=== PATIENT | male | born 1950 | race African-American/Black ===

== ENCOUNTER 2017-04-14 11:51 | Inpatient (IN) | payer OTHER ==
[~2017-04-14] VITALS: Ht 145 cm; Wt 68.5 kg
--- NOTE | ~2017-04-14 | HC ---
[facility] [address] [place] [address] CONSULTATION Name: KISHORE GUTIERREZ Room #: 442-P [facility] IN M.R.#: [id number] Admission: 04/14/17 Attend Phys: Michael Logan Discharge: 04/16/17 Date of : 52 Report #: [id number] THIS REPORT FOR: //name// CC: Michael Jennings DATE OF SERVICE: 04/14/2017 CHIEF COMPLAINT: Right flank pain. CONSULTING PHYSICIAN: Dr. Logan. HISTORY OF PRESENT ILLNESS: The patient is a very pleasant 66-year-old male patient who presented to the Emergency Department on 04/14/2017 complaining of right flank pain that had begun earlier that morning. He also associated nausea with this symptom. He also reported multiple episodes of diarrhea approximately four times during the day associated with crampy abdominal pain in the right flank. He also had some pain in the left flank. No gavin fevers or chills were reported. Prior abdominal operations include open appendectomy in the distant past. PAST MEDICAL HISTORY: Positive for hypertension, spinal stenosis, rheumatoid arthritis, previous gastritis, gastroesophageal reflux disease, previous cellulitis, gout, cataracts, arthritis, status post multiple orthopedic operations and chronic low back pain. ALLERGIES: Include PLAVIX and MORPHINE, which give hives and rash. MEDICATIONS: Include Naprosyn, Norflex, Ultram, Nexium, Indocin and prednisone. Previous medications included metoprolol, simvastatin and tamsulosin. PAST SURGICAL HISTORY: Positive for bilateral knee replacement, bilateral hip replacement, open appendectomy, cataract surgery; previous retinal ophthalmologic surgery, bilateral. SOCIAL HISTORY: Negative for illicit drug use, social ETOH, 2-3 drinks per day. Previous smoker many years ago. REVIEW OF SYSTEMS: CONSTITUTIONAL: Negative for fevers, chills or unwanted weight loss. OCULAR: No diplopia or visual change, history of extensive ophthalmologic operations. HEENT: No dysphagia or odynophagia. PULMONARY: No productive cough, no shortness of breath. CARDIOVASCULAR: No chest pain or palpitation. GASTROINTESTINAL: Positive for abdominal pain and diarrhea. Negative for melena or hematochezia. GENITOURINARY: Negative for dysuria or hematuria. MUSCULOSKELETAL: Positive for chronic low back pain. No joint swelling. CUTANEOUS: Negative for new lesions or rashes. NEUROLOGIC: No [facility] [address] [place] [address] CONSULTATION Name: KISHORE GUTIERREZ Room #: [address] [place] [address] IN M.R.#: [id number] Admission: 04/14/17 Attend Phys: Michael Logan Discharge: 04/16/17 Date of : 52 Report #: [id number] focal weakness or numbness. PSYCHIATRIC: No depression or anxiety. ENDOCRINE: No heat or cold intolerance. PHYSICAL EXAMINATION: GENERAL: The patient is awake, alert and oriented. He is pleasant, in no acute distress and he gives appropriate history. HEENT: Head is atraumatic and normocephalic. Pupils are equally round and reactive. Mucosae are pink and moist. No icterus. NECK: Supple, no jugular venous distention. LUNGS: Clear to auscultation without respiratory distress. ABDOMEN: Soft and nontender to palpation, no distention is appreciated. No rebound or guarding. Well-healed appendectomy incision with no obvious hernia. EXTREMITIES: Without clubbing, cyanosis or edema. The patient moves all extremities without weakness. LABORATORY DATA: Laboratory studies are reviewed. Sodium 141, potassium 3.7, chloride 106, CO2 24, BUN 4, creatinine 0.8, glucose of 93. AST of 62, ALT of 37, alkaline phosphatase of 138, albumin of 3.6, T. bili of 0.8, direct bilirubin of 0.3. White count of 5.8, hemoglobin 13.4, platelets of 176 and creatinine 0.8. Ultrasound of the abdomen obtained in the Emergency Department shows no gallstones or gallbladder wall thickening, no pericholecystic fluid, liver unremarkable. CT scan, renal stone protocol was obtained given the patient's flank pain and this showed some mild gaseous distention of several segments of small bowel loops with air fluid leveling. No focal inflammatory changes were noted. Mild colonic diverticulosis was noted. No transition point was seen. No free air or free fluid. No renal stones or hydronephrosis were identified. Bilateral renal cysts were identified. IMPRESSION: 66-year-old male patient with right-sided abdominal pain and right flank pain of unclear etiology. This does not appear to be postprandial. There was no obvious nephrolithiasis or hydronephrosis identified on CT imaging . The patient has previously undergone appendectomy. There is no clinical evidence of small-bowel obstruction. The imaging does show some mild gaseous distention of several small bowel loops, but no transition point. Would send a stool sample to rule out Clostridium difficile infection as well as send for stool, WBCs, ova and parasites. The patient did mention previous Shigella infection in the distant past at an outside facility. There is no indication for immediate surgical intervention. Consultation very much appreciated. We will continue to follow closely and make further recommendations based upon clinical status as well as laboratory and radiographic findings. <ELECTRONICALLY SIGNED> By: Kishore Aparicio MD 04/18/17 1027 1318 2312 Kishore Aparicio MD /nt
[2017-04-14 11:51] VITALS: BP 149/107
[~2017-04-14 11:51] MED LIST: ASPIRIN325; CLEOCIN HCL150 MG PO; COLCHICINE 0.60.6 M1 PO; FLOMAX0.4 MG PO; INDOMETHACIN 2525 MG PO; LISINOPRIL2.5 MG PO; NAPROSYN500 MG PO; NEXIUM40 MG PO; NORCO 5-325 TA1 EACH PO; NORFLEX100 MG PO; PERCOCET 5-3251 EACH PO; PERCOCET PO; PREDNISONE 10 M10 MG PO; PREDNISONE 20 M20 M1 PO; TOPROL XL25 MG PO; TRAMADOL 50 MG50 MG PO; ZOCOR20 MG PO
[2017-04-14 13:24] LABS: BASOPHILS 0.6 % (0.0-2.0); EOSINOPHILS 0.7 % (0.0-3.0); HEMATOCRIT 40.3 % (42.0-52.0); HEMOGLOBIN 13.4 gm/dL (14.0-18.0); LYMPHOCYTES 20.5 % (24.0-44.0); MCH 35.6 pg (26.0-34.0); MCHC 33.3 g/dL (28.0-37.0); MCV 106.7 fL (80.0-100.0); MONOCYTES 8.5 % (1.0-8.0); PLATELET COUNT 176 thou/uL (150-400); POLYS 69.7 % (36.0-66.0); RBC 3.77 mil/uL (4.50-6.00); RDW 16.7 % (10.5-14.5); WBC 5.8 thou/uL (4.0-11.0)
[2017-04-14 13:25] LABS: MANUAL DIFF NO
[2017-04-14 13:35] LABS: CALCIUM 8.9 mg/dL (8.5-10.1); CREATININE 0.8 mg/dL (0.7-1.3); POTASSIUM 3.7 mmol/L (3.5-5.1)
[2017-04-14 13:41] LABS: ALBUMIN 3.6 g/dL (3.4-5.0); DIRECT BILIRUBIN 0.3 mg/dL (<0.1-0.3); TOTAL BILIRUBIN 0.8 mg/dL (<0.1-1.0); TOTAL PROTEIN 7.6 g/dL (6.4-8.2)
[2017-04-14 13:55] LABS: ANISOCYTOSIS 1+; MACROCYTES 1+
[2017-04-14] MEDS ORDERED: PERCOCET 10-321 EACH PO (14:40)
[2017-04-14 14:58] LABS: URINE BILIRUBIN NEGATIVE (Negative); URINE BLOOD NEGATIVE (Negative); URINE COLOR YELLOW; URINE GLUCOSE-RANDOM* NEGATIVE (Negative); URINE KETONES NEGATIVE (Negative); URINE NITRITE NEGATIVE (Negative); URINE PROTEIN (DIPSTICK) NEGATIVE (Negative); URINE SPECIFIC GRAVITY 1.015 (1.003-1.035); URINE UROBILINOGEN 0.2 E.U./dl (0.2-1.0)
[2017-04-14 16:21] VITALS: BP 133/84
[2017-04-14 19:39] VITALS: BP 116/61
[2017-04-15 04:07] LABS: ALBUMIN 2.7 g/dL (3.4-5.0); CALCIUM 7.8 mg/dL (8.5-10.1); CREATININE 0.7 mg/dL (0.7-1.3); MAGNESIUM 2.1 mg/dL (1.8-2.4); POTASSIUM 3.4 mmol/L (3.5-5.1); TOTAL BILIRUBIN 0.7 mg/dL (<0.1-1.0); TOTAL PROTEIN 6.3 g/dL (6.4-8.2)
[2017-04-15 05:34] VITALS: BP 131/74
[2017-04-15 08:26] VITALS: BP 144/85
[2017-04-15 16:18] VITALS: BP 121/86
[2017-04-15 19:25] VITALS: BP 140/82
[2017-04-16 05:07] VITALS: BP 134/68
[2017-04-16 05:52] LABS: ALBUMIN 2.8 g/dL (3.4-5.0); CREATININE 0.7 mg/dL (0.7-1.3); PHOSPHORUS 3.5 mg/dL (2.5-4.9); POTASSIUM 3.5 mmol/L (3.5-5.1)
[2017-04-16 08:00] VITALS: BP 123/76
[2017-04-16 14:31] VITALS: BP 123/76
[2017-04-16 15:51] VITALS: BP 123/76
== END 2017-04-16 15:30 | disposition home or self-care (01) | DRG 392 ==
LOC: ER 11:51 → 4S 14:28 → EROBS 14:28 → 4S 14:47
PROVIDERS: Emergency Medicine; Hospitalist
DX: K52.9 Noninfective gastroenteritis and colitis, unspecified (principal); I10 Essential (primary) hypertension; M48.00 Spinal stenosis, site unspecified; M06.9 Rheumatoid arthritis, unspecified; K21.9 Gastro-esophageal reflux disease without esophagitis; G89.29 Other chronic pain; M10.9 Gout, unspecified; Z96.653 Presence of artificial knee joint, bilateral; Z96.643 Presence of artificial hip joint, bilateral; M54.5 Low back pain; Z87.891 Personal history of nicotine dependence; Z90.49 Acquired absence of other specified parts of digestive tract; Z98.42 Cataract extraction status, left eye; Z98.41 Cataract extraction status, right eye; Z88.6 Allergy status to analgesic agent; Z88.8 Allergy status to other drugs, medicaments and biological substances
CPT/HCPCS: 10195

== ENCOUNTER 2017-07-08 13:44 | Emergency (ER) | payer OTHER ==
[~2017-07-08] VITALS: Ht 162.6 cm; Wt 67.6 kg
[~2017-07-08 13:44] MED LIST changes: +HYDROCODONE-AP1 EAC6 PO; +KEFLEX500 MG PO; +PERCOCET 10-321 EACH PO
[2017-07-08] MEDS ORDERED: NORFLEX100 MG PO (14:28)
[2017-07-08] MEDS ORDERED: ULTRAM 50MG TAB50 MG PO (14:28)
[2017-07-08] MEDS ORDERED: MOBIC15 MG PO (14:28)
== END 2017-07-08 15:01 | disposition home or self-care (01) ==
LOC: ER 13:44
DX: G89.29 Other chronic pain (principal); M54.5 Low back pain; I10 Essential (primary) hypertension; M06.9 Rheumatoid arthritis, unspecified; K21.9 Gastro-esophageal reflux disease without esophagitis; M10.9 Gout, unspecified; F10.99 Alcohol use, unspecified with unspecified alcohol-induced disorder; Z96.653 Presence of artificial knee joint, bilateral; Z96.643 Presence of artificial hip joint, bilateral; Z90.49 Acquired absence of other specified parts of digestive tract; Z88.5 Allergy status to narcotic agent; Z88.8 Allergy status to other drugs, medicaments and biological substances

== ENCOUNTER 2018-01-02 18:15 | Emergency (ER) | payer OTHER ==
[~2018-01-02] VITALS: Ht 165.1 cm; Wt 66.7 kg
[~2018-01-02 18:15] MED LIST changes: +MOBIC15 MG PO; +ULTRAM 50MG TAB50 MG PO
[2018-01-02] MEDS ORDERED: LIORESAL 10 MG10 MG PO (18:46)
[2018-01-02 19:01] VITALS: BP 151/89
== END 2018-01-02 18:57 | disposition home or self-care (01) ==
LOC: ER 18:15
DX: S16.1XXA Strain of muscle, fascia and tendon at neck level, initial encounter (principal); M43.6 Torticollis; I10 Essential (primary) hypertension; M06.9 Rheumatoid arthritis, unspecified; M10.9 Gout, unspecified; K21.9 Gastro-esophageal reflux disease without esophagitis; Z88.6 Allergy status to analgesic agent; Z88.8 Allergy status to other drugs, medicaments and biological substances; Z90.49 Acquired absence of other specified parts of digestive tract; X58.XXXA Exposure to other specified factors, initial encounter; Y93.89 Activity, other specified; Y92.89 Other specified places as the place of occurrence of the external cause; Y99.8 Other external cause status

== ENCOUNTER 2018-09-04 10:22 | Emergency (ER) | payer OTHER ==
[~2018-09-04] VITALS: Ht 165.1 cm; Wt 66.7 kg
[~2018-09-04 10:22] MED LIST changes: +LIORESAL 10 MG10 MG PO
[2018-09-04 10:55] LABS: ABSOLUTE NEUTROPHILS 7.1 thou/uL (1.4-8.2); BASOPHILS 0.4 % (0.0-2.0); EOSINOPHILS 0.6 % (0.0-3.0); HEMATOCRIT 38.6 % (42.0-52.0); HEMOGLOBIN 13.6 gm/dL (14.0-18.0); LYMPHOCYTES 10.1 % (24.0-44.0); MCH 33.8 pg (26.0-34.0); MCHC 35.2 g/dL (28.0-37.0); MCV 96.1 fL (80.0-100.0); MONOCYTES 10.1 % (1.0-8.0); PLATELET COUNT 176 thou/uL (150-400); POLYS 78.8 % (36.0-66.0); RBC 4.02 mil/uL (4.50-6.00); RDW 14.2 % (10.5-14.5)
[2018-09-04 11:02] LABS: CALCIUM 8.7 mg/dL (8.5-10.1); CREATININE 0.9 mg/dL (0.7-1.3); POTASSIUM 3.5 mmol/L (3.5-5.1)
[2018-09-04 11:09] LABS: TOTAL BILIRUBIN 0.7 mg/dL (<0.1-1.0); TOTAL PROTEIN 7.6 g/dL (6.4-8.2); URIC ACID* 5.2 mg/dL (2.6-7.2)
[2018-09-04] MEDS ORDERED: MEDROLDOSEPACK PO (11:29)
[2018-09-04] MEDS ORDERED: ULTRAM 50MG TAB50 MG PO (11:32)
[2018-09-04] MEDS ORDERED: MOBIC15 MG PO (11:32)
[2018-09-04 11:42] VITALS: BP 165/99
== END 2018-09-04 11:43 | disposition home or self-care (01) ==
LOC: ER 10:22
PROVIDERS: Nurse Practitioner
DX: M19.041 Primary osteoarthritis, right hand (principal); M79.672 Pain in left foot; I10 Essential (primary) hypertension; M48.00 Spinal stenosis, site unspecified; M06.9 Rheumatoid arthritis, unspecified; K21.9 Gastro-esophageal reflux disease without esophagitis; M10.9 Gout, unspecified; Z88.5 Allergy status to narcotic agent; Z88.8 Allergy status to other drugs, medicaments and biological substances; Z96.653 Presence of artificial knee joint, bilateral; Z96.643 Presence of artificial hip joint, bilateral; Z90.49 Acquired absence of other specified parts of digestive tract

== ENCOUNTER 2018-10-09 19:35 | Emergency (ER) | payer OTHER ==
[~2018-10-09] VITALS: Ht 165.1 cm; Wt 66.7 kg
--- NOTE | ~2018-10-09 | EKG ---
[address] [place] [address] ELECTROCARDIOGRAM REPORT Name: CINTHYA GUTIERREZ Room #: [facility] Jaime#: [id number] Admission: 10/09/18 Attend Phys: Discharge: 10/09/18 Date of : 52 Report #: [id number] THIS REPORT FOR: //name// [facility] ED Test Date: 2018-10-09 Test Time: 19:51:33 Pat Name: CINTHYA GUTIERREZ Department: Room: Gender: Senior Genetic Counselor: Jerry JOHN : 1950 Requested By: Kashmir Lara Order Number: [id number] MD: Maximilian Anglin Measurements Intervals [place] Rate: 88 P: 54 MS: 148 QRS: 26 QRSD: 85 T: 16 QT: 366 QTc: 443 Interpretive Statements Sinus rhythm Compared to ECG 07/06/2016 01:03:55 Left ventricular hypertrophy no longer present Electronically Signed On 10-10-2018 8:18:52 [employer] OPERATOR by Maximilian Anglin [email or web address] <ELECTRONICALLY SIGNED> By: Maximilian Anglin MD 10/10/18817 50 50 Maximilian Anglin MD /EPI
[~2018-10-09 19:35] MED LIST changes: +MEDROLDOSEPACK PO
[2018-10-09 20:05] LABS: ABSOLUTE NEUTROPHILS 5.9 thou/uL (1.4-8.2); BASOPHILS 0.5 % (0.0-2.0); EOSINOPHILS 0.9 % (0.0-3.0); HEMOGLOBIN 16.4 gm/dL (14.0-18.0); LYMPHOCYTES 18.1 % (24.0-44.0); MCH 33.8 pg (26.0-34.0); MCHC 34.8 g/dL (28.0-37.0); MCV 97.1 fL (80.0-100.0); MONOCYTES 8.5 % (1.0-8.0); PLATELET COUNT 147 thou/uL (150-400); RBC 4.84 mil/uL (4.50-6.00); RDW 14.2 % (10.5-14.5); WBC 8.2 thou/uL (4.0-11.0)
[2018-10-09 20:10] LABS: ANION GAP 8 mmol/L (7-16); BUN 8 mg/dL (7-18); CALCIUM 9.1 mg/dL (8.5-10.1); CHLORIDE 102 mmol/L (98-107); CO2 26 mmol/L (21-32); CREATININE 0.8 mg/dL (0.7-1.3); GLUCOSE 98 mg/dL (74-106); POTASSIUM 3.8 mmol/L (3.5-5.1); SODIUM 136 mmol/L (136-145)
[2018-10-09 20:19] LABS: ALBUMIN 3.8 g/dL (3.4-5.0); LIPASE 136 U/L (73-393); SGOT 56 U/L (15-37); SGPT 38 U/L (30-65); TOTAL BILIRUBIN 0.8 mg/dL (<0.1-1.0); TOTAL PROTEIN 8.3 g/dL (6.4-8.2); TROPONIN-I <0.06 ng/mL (<0.06)
[2018-10-09] MEDS ORDERED: PHENERGAN 25 MG25 M1 PO (22:15)
[2018-10-09] MEDS ORDERED: BENTYL 20 MG TA20 M1 PO (22:15)
[2018-10-09 22:38] VITALS: BP 148/89
== END 2018-10-09 22:38 | disposition home or self-care (01) ==
LOC: ER 19:35
PROVIDERS: Physician Assistant
DX: R11.2 Nausea with vomiting, unspecified (principal); R10.11 Right upper quadrant pain; R10.13 Epigastric pain; I10 Essential (primary) hypertension; M06.9 Rheumatoid arthritis, unspecified; K21.9 Gastro-esophageal reflux disease without esophagitis; M10.9 Gout, unspecified; Z88.6 Allergy status to analgesic agent; Z88.8 Allergy status to other drugs, medicaments and biological substances; Z96.653 Presence of artificial knee joint, bilateral; Z96.643 Presence of artificial hip joint, bilateral; Z90.49 Acquired absence of other specified parts of digestive tract

== ENCOUNTER 2019-01-03 11:03 | Inpatient (IN) | payer OTHER ==
[~2019-01-03] VITALS: Ht 165.1 cm; Wt 66.7 kg
[~2019-01-03 11:03] MED LIST changes: +BENTYL 20 MG TA20 M1 PO; +PHENERGAN 25 MG25 M1 PO
[2019-01-03 11:04] VITALS: BP 164/89
[2019-01-03 11:55] LABS: CALCIUM 8.8 mg/dL (8.5-10.1); CREATININE 0.7 mg/dL (0.7-1.3); POTASSIUM 3.8 mmol/L (3.5-5.1)
[2019-01-03 11:57] LABS: ABSOLUTE NEUTROPHILS 5.8 thou/uL (1.4-8.2); BASOPHILS 0.4 % (0.0-2.0); HEMOGLOBIN 13.4 gm/dL (14.0-18.0); LYMPHOCYTES 9.2 % (24.0-44.0); MCH 33.1 pg (26.0-34.0); MCHC 33.6 g/dL (28.0-37.0); MCV 98.6 fL (80.0-100.0); MONOCYTES 5.2 % (1.0-8.0); PLATELET COUNT 156 thou/uL (150-400); POLYS 85.2 % (36.0-66.0); RBC 4.05 mil/uL (4.50-6.00); RDW 14.2 % (10.5-14.5); WBC 6.8 thou/uL (4.0-11.0)
[2019-01-03 12:01] LABS: ALBUMIN 3.7 g/dL (3.4-5.0); TOTAL BILIRUBIN 0.7 mg/dL (<0.1-1.0); TOTAL PROTEIN 8.1 g/dL (6.4-8.2)
[2019-01-03 12:57] LABS: URINE BILIRUBIN NEGATIVE (Negative); URINE BLOOD NEGATIVE (Negative); URINE CLARITY CLEAR; URINE COLOR YELLOW; URINE GLUCOSE-RANDOM* NEGATIVE (Negative); URINE KETONES 2+ (Negative); URINE LEUKOCYTES-REFLEX NEGATIVE (Negative); URINE NITRITE-REFLEX NEGATIVE (Negative); URINE PROTEIN (DIPSTICK) NEGATIVE (Negative); URINE UROBILINOGEN 0.2 E.U./dl (0.2-1.0)
[2019-01-03] MEDS ORDERED: ASPIRIN325 PO (14:55)
[2019-01-03 15:05] VITALS: BP 111/75
[2019-01-03 15:49] VITALS: BP 129/75
[2019-01-03 20:22] VITALS: BP 149/89
[2019-01-04 03:25] VITALS: BP 145/93
[2019-01-04 07:28] VITALS: BP 173/88
[2019-01-04 17:45] VITALS: BP 144/96
[2019-01-05 07:04] LABS: ALBUMIN 2.8 g/dL (3.4-5.0); CALCIUM 8.1 mg/dL (8.5-10.1); CREATININE 0.8 mg/dL (0.7-1.3); MAGNESIUM 1.8 mg/dL (1.8-2.4); TOTAL BILIRUBIN 1.3 mg/dL (<0.1-1.0); TOTAL PROTEIN 6.9 g/dL (6.4-8.2)
[2019-01-05 07:06] LABS: POTASSIUM 2.7 mmol/L (3.5-5.1)
[2019-01-05 08:15] VITALS: BP 122/82
[2019-01-05 13:54] LABS: CALCIUM 8.3 mg/dL (8.5-10.1); CREATININE 0.8 mg/dL (0.7-1.3)
[2019-01-05 19:27] VITALS: BP 117/74
[2019-01-06 06:33] LABS: CALCIUM 8.3 mg/dL (8.5-10.1); CREATININE 0.7 mg/dL (0.7-1.3); POTASSIUM 3.5 mmol/L (3.5-5.1)
[2019-01-06 08:00] VITALS: BP 119/71
[2019-01-06 19:52] VITALS: BP 115/88
[2019-01-07 08:25] VITALS: BP 123/84
--- NOTE | 2019-01-07 17:07 | PATH ---
[facility] [address] [place] [address] PATHOLOGY RPT PROCEDURE Name: KISHORE GUSTAFSON Room #: 222-P ADM IN M.R.#: [id number] ������������������ Admission: 01/03/19 ������������������ Date of : 52 Discharge: Report #: [id number] Path Case #: [id number] [facility] Accession Number: [id number] . 01 Material submitted: . BX GASTRITIS R/O H. PYLORI . 01 Clinical history: . Pre-OP DX: Nausea, vomiting, epigastric pain Post-OP DX: Duodenal ulcers, gastritis, esophagitis . 02 Diagnosis: Gastric mucosa, gastritis rule out H. pylori, endoscopic biopsy: - Moderate reactive gastropathy. - Negative for intestinal metaplasia or atrophy. - Negative for Helicobacter pylori (properly controlled immunohistochemical stain performed). (IUV:martin; 01/07/2019) MBNani/01/07/2019 . 02 Electronically signed: . Shannan Butterfield MD, Pathologist NPI- [id number] . 01 Gross description: . Received in formalin labeled "Kishore Gustafson, BX gastritis, rule out H. pylori," are 3 segments of lemus soft tissue measuring 1.1 x 0.9 x 0.2 cm in aggregate dimensions and ranging from 0.3 to 0.6 cm in maximum dimension. The specimen is submitted entirely in cassette A1. (TSD; 01/04/2019) TOB/TOB . 02 Pathologist provided ICD-10: K31.9 . 02 CPT . 170881, R13017 Specimen Comment: A courtesy copy of this report has been sent to Specimen Comment: [phone], . Specimen Comment: Report sent to and Performed at: [address] [id number] MD Anjum Owens MD Phone: [phone] Performed at: [address] [id number] [address] [address] PATHOLOGY RPT PROCEDURE Name: KISHORE GUSTAFSON Room #: 222-P ADM IN M.R.#: [id number] ������������������ Admission: 01/03/19 ������������������ Date of : 52 Discharge: Report #: [id number] Path Case #: [id number] MD Shannan Vadlamani MD Phone: [phone]
[2019-01-07 18:48] VITALS: BP 170/97
[2019-01-07 20:55] VITALS: BP 170/97
[2019-01-08 08:25] VITALS: BP 145/89
[2019-01-08 13:51] LABS: HEMATOCRIT 37.8 % (42.0-52.0); MCH 34.2 pg (26.0-34.0); MCHC 34.3 g/dL (28.0-37.0); MCV 99.7 fL (80.0-100.0); RBC 3.79 mil/uL (4.50-6.00); RDW 14.2 % (10.5-14.5); WBC 9.6 thou/uL (4.0-11.0)
[2019-01-08 14:02] LABS: CALCIUM 8.5 mg/dL (8.5-10.1); CREATININE 0.9 mg/dL (0.7-1.3); MAGNESIUM 1.8 mg/dL (1.8-2.4); POTASSIUM 3.3 mmol/L (3.5-5.1)
[2019-01-08] MEDS ORDERED: PERCOCET 10-321 EACH PO ×2 (16:38→16:45)
[2019-01-08 17:31] VITALS: BP 145/89
--- NOTE | 2019-01-09 11:09 | PATH ---
[facility] [address] [place] [address] PATHOLOGY RPT PROCEDURE Name: KISHORE GUTIERREZ Room #: 222-P DIS IN M.R.#: [id number] ������������������ Admission: 01/03/19 ������������������ Date of : 52 Discharge: 01/08/19 Report #: [id number] Path Case #: [id number] [facility] Accession Number: [id number] . 01 Material submitted: . GALLBLADDER . 01 Clinical history: . Biliary dyskinesia . 02 Diagnosis: Gallbladder, cholecystectomy: - Mild chronic cholecystitis. (IUV:filtrose crusher; 01/08/2019) MBR/01/08/2019 . 02 Electronically signed: . Shannan Butterfield MD, Pathologist NPI- [id number] . 01 Gross description: . The specimen is received in formalin, labeled "Kishore Gutierrez, gallbladder", is a previously opened gallbladder measuring 6.0 x 3.7 cm with abundantly attached yellow lobulated adipose tissue. The mucosa is a lemus-pink and granular and the wall has an average thickness of 0.2 cm. No discrete masses or calculi identified. Appliquer tissue is submitted in A1. (SWS; 01/07/2019) SHS/SHS . 02 Pathologist provided ICD-10: K81.1 . 02 CPT . 630203 Specimen Comment: A courtesy copy of this report has been sent to Specimen Comment: [phone], . Specimen Comment: Report sent to / DR DAVIS Specimen Comment: A duplicate report has been generated due to demographic updates. Performed at: 01 [place] [id number] [id number] MD Anjum Owens MD Phone: [phone] Performed at: [address] [id number] [address] [address] PATHOLOGY RPT PROCEDURE Name: KISHORE GUTIERREZ Room #: 222-P DIS IN M.R.#: [id number] ������������������ Admission: 01/03/19 ������������������ Date of : 52 Discharge: 01/08/19 Report #: [id number] Path Case #: [id number] MD Shannan Butterfield MD Phone: [phone]
--- NOTE | 2019-01-14 18:19 | P ---
[facility] [address] [place] [address] PROCEDURE REPORT Name: CINTHYA GUTIERREZ Room #: 222-P [facility] IN M.R.#: [id number] Admission: 01/03/19 ������������������ Attend Phys: Ta Dimas MD Discharge: 01/08/19 ������������������ Date of : 52 Report #: [id number] THIS REPORT FOR: //name// CC: [facility] physician/PCP Ta JULIO DATE OF SERVICE: 01/04/2019 PROCEDURE PERFORMED: Upper endoscopy with biopsies. HISTORY OF PRESENT ILLNESS: The patient is a 68-year-old male with intermittent abdominal pain, nausea, vomiting, was taking indomethacin as well as other NSAIDs. He underwent a CT scan initially, which was unremarkable. The PIPPIDA scan was performed this morning, which showed a normal ejection fraction of the gallbladder of 91%. However, with the administration of CCK, produce prompt severe pain, which was a reproduction of his pain he typically has. DESCRIPTION OF PROCEDURE: The risks and benefits of the procedure were explained to the patient, those risks including but not limited to bleeding, perforation, the risk of sedation. He understood these risks and gave informed consent. Sedation was given using propofol per Anesthesia. Next, using a standard Olympus upper endoscope, the scope was placed in the patient's mouth and advanced under direct vision through the esophagus, stomach and into the second portion of the duodenum. The larynx was normal in appearance. The upper and mid esophagus was normal. At the GE junction, mild grade A erosive esophagitis was noted. Upon entering the stomach, a small hiatal hernia was noted. There was a mild diffuse gastritis. No evidence of ulcerations or erosions in the stomach. Biopsies were obtained to rule out H. pylori. The pylorus was normal and patent. There are multiple small clean white based ulcers within the duodenal bulb as well as the first portion. These range in size from 2-4 mm. There was no evidence of bleeding. The scope was then withdrawn and the procedure terminated. The patient tolerated the procedure well. IMPRESSION: 1. Grade A erosive esophagitis. 2. Mild gastritis. 3. Multiple small ulcerations within the duodenum. 4. Small hiatal hernia. 5. Otherwise, normal upper endoscopy. RECOMMENDATIONS: 1. Await biopsy results. 2. Recommend continued daily PPI therapy. [address] [address] PROCEDURE REPORT Name: CINTHYA GUTIERREZ Room #: 222-P DIS IN M.R.#: [id number] Admission: 01/03/19 ������������������ Attend Phys: Ta Dimas MD Discharge: 01/08/19 ������������������ Date of : 52 Report #: [id number] 3. I suspect the patient's abdominal pain is secondary to gallbladder dysmotility as he had reproduction of his pain with CCK injection today on PIPIDA scan. Therefore, we will obtain a surgery consult for further evaluation. Thank you for allowing me to participate in his care. ��������������������������������������������� <ELECTRONICALLY SIGNED> ���������������������������������������� By: Parvez Reyes MD ��������������������������������������������� 01/14/19 1819 1433 0815 Parvez Reyes MD /chuck
== END 2019-01-08 19:33 | disposition home or self-care (01) | DRG 356 ==
LOC: ER 11:03 → 4W 14:40 → EROBS 14:40 → 4W 15:37 → SICU 01-04 17:46
PROVIDERS: Internal Medicine; Nurse Practitioner Acute Care; Physician Assistant; ADMIT Internal Medicine
PROC: 0DB68ZX Excision of Stomach, Via Natural or Artificial Opening Endoscopic, Diagnostic (ICD-10-PCS; principal; 2019-01-04)
PROC: 0FT44ZZ Resection of Gallbladder, Percutaneous Endoscopic Approach (ICD-10-PCS; 2019-01-07)
DX: K26.9 Duodenal ulcer, unspecified as acute or chronic, without hemorrhage or perforation (principal); K81.9 Cholecystitis, unspecified; E43 Unspecified severe protein-calorie malnutrition; K22.10 Ulcer of esophagus without bleeding; K29.70 Gastritis, unspecified, without bleeding; K82.8 Other specified diseases of gallbladder; M10.9 Gout, unspecified; M06.9 Rheumatoid arthritis, unspecified; I10 Essential (primary) hypertension; Z96.653 Presence of artificial knee joint, bilateral; Z96.643 Presence of artificial hip joint, bilateral; K21.0 Gastro-esophageal reflux disease with esophagitis; K29.80 Duodenitis without bleeding; K44.9 Diaphragmatic hernia without obstruction or gangrene; M19.90 Unspecified osteoarthritis, unspecified site; M54.5 Low back pain; E87.6 Hypokalemia; K59.03 Drug induced constipation; G89.4 Chronic pain syndrome; M48.00 Spinal stenosis, site unspecified; E78.5 Hyperlipidemia, unspecified; T40.2X5A Adverse effect of other opioids, initial encounter; Y92.89 Other specified places as the place of occurrence of the external cause; Z87.891 Personal history of nicotine dependence; Z98.42 Cataract extraction status, left eye; Z90.49 Acquired absence of other specified parts of digestive tract; Z98.41 Cataract extraction status, right eye; Z79.82 Long term (current) use of aspirin; Z79.899 Other long term (current) drug therapy; Z88.5 Allergy status to narcotic agent; Z88.8 Allergy status to other drugs, medicaments and biological substances
CPT/HCPCS: 10045; 15002; 50010; 50101; 50249; 50411; 50555; 50558; 50962; 51975; 52265; 53307; 53310; 54022; 54118; 55245; 56462; 56525; 56526; 62110; 62900; 70005

== ENCOUNTER 2019-01-10 15:05 | Emergency (ER) | payer OTHER ==
[~2019-01-10] VITALS: Ht 165.1 cm; Wt 66.7 kg
[~2019-01-10 15:05] MED LIST changes: +ASPIRIN325 PO
[2019-01-10 15:06] VITALS: BP 127/69
[2019-01-10] MEDS ORDERED: PERCOCET 10-321 EACH PO (16:01)
== END 2019-01-10 16:11 | disposition home or self-care (01) ==
LOC: ER 15:05
DX: G89.18 Other acute postprocedural pain (principal); G89.4 Chronic pain syndrome; K59.00 Constipation, unspecified; M06.9 Rheumatoid arthritis, unspecified; M10.9 Gout, unspecified; K21.9 Gastro-esophageal reflux disease without esophagitis; I10 Essential (primary) hypertension; Z90.49 Acquired absence of other specified parts of digestive tract; Z96.653 Presence of artificial knee joint, bilateral; Z96.643 Presence of artificial hip joint, bilateral; Z88.5 Allergy status to narcotic agent; Z88.8 Allergy status to other drugs, medicaments and biological substances

== ENCOUNTER 2019-02-18 14:30 | Emergency (ER) | payer OTHER ==
[~2019-02-18] VITALS: Ht 165.1 cm; Wt 66.7 kg
[2019-02-18 15:57] VITALS: BP 147/85
[2019-02-18 16:06] LABS: ABSOLUTE NEUTROPHILS 5.2 thou/uL (1.4-8.2); BASOPHILS 0.5 % (0.0-2.0); EOSINOPHILS 1.1 % (0.0-3.0); HEMATOCRIT 39.4 % (42.0-52.0); HEMOGLOBIN 13.5 gm/dL (14.0-18.0); LYMPHOCYTES 6.9 % (24.0-44.0); MCH 33.5 pg (26.0-34.0); MCHC 34.3 g/dL (28.0-37.0); MCV 97.9 fL (80.0-100.0); PLATELET COUNT 175 thou/uL (150-400); POLYS 84.5 % (36.0-66.0); RBC 4.02 mil/uL (4.50-6.00); RDW 13.7 % (10.5-14.5); WBC 6.1 thou/uL (4.0-11.0)
[2019-02-18 16:14] LABS: CALCIUM 8.5 mg/dL (8.5-10.1); CREATININE 0.7 mg/dL (0.7-1.3); POTASSIUM 4.1 mmol/L (3.5-5.1)
[2019-02-18 16:19] LABS: ALBUMIN 3.1 g/dL (3.4-5.0); DIRECT BILIRUBIN 0.2 mg/dL (<0.1-0.3); TOTAL BILIRUBIN 0.6 mg/dL (<0.1-1.0); TOTAL PROTEIN 7.2 g/dL (6.4-8.2)
[2019-02-18 16:34] LABS: URINE BILIRUBIN NEGATIVE (Negative); URINE BLOOD NEGATIVE (Negative); URINE CLARITY CLEAR; URINE COLOR YELLOW; URINE GLUCOSE-RANDOM* NEGATIVE (Negative); URINE KETONES NEGATIVE (Negative); URINE LEUKOCYTES-REFLEX NEGATIVE (Negative); URINE NITRITE-REFLEX NEGATIVE (Negative); URINE PROTEIN (DIPSTICK) NEGATIVE (Negative); URINE UROBILINOGEN 0.2 E.U./dl (0.2-1.0)
== END 2019-02-18 18:04 | disposition home or self-care (01) ==
LOC: ER 14:30
PROVIDERS: Emergency Medicine
DX: J02.9 Acute pharyngitis, unspecified (principal); E87.2 Acidosis; M48.00 Spinal stenosis, site unspecified; M06.9 Rheumatoid arthritis, unspecified; K21.9 Gastro-esophageal reflux disease without esophagitis; M10.9 Gout, unspecified; I10 Essential (primary) hypertension; Z88.5 Allergy status to narcotic agent; Z88.8 Allergy status to other drugs, medicaments and biological substances; Z96.653 Presence of artificial knee joint, bilateral; Z96.643 Presence of artificial hip joint, bilateral; Z90.49 Acquired absence of other specified parts of digestive tract

== ENCOUNTER 2020-06-23 06:31 | Emergency (ER) | payer OTHER ==
[~2020-06-23] VITALS: Ht 165.1 cm; Wt 65.3 kg
[2020-06-23] MEDS ORDERED: RAYOS5 MG PO (06:42)
[2020-06-23] MEDS ORDERED: INDOMETHACIN20 MG PO (06:44)
[2020-06-23] MEDS ORDERED: PROTONIX40 M2 PO (06:45)
[2020-06-23] MEDS ORDERED: BUTALB-APAP-CA1 EACH PO (10:45)
[2020-06-23 10:54] VITALS: BP 120/84
== END 2020-06-23 10:54 | disposition home or self-care (01) ==
LOC: ER 06:31
DX: R51 Headache (principal); I10 Essential (primary) hypertension; K21.9 Gastro-esophageal reflux disease without esophagitis; M10.9 Gout, unspecified; Z90.49 Acquired absence of other specified parts of digestive tract; Z79.82 Long term (current) use of aspirin; Z79.899 Other long term (current) drug therapy; Z88.5 Allergy status to narcotic agent; Z88.8 Allergy status to other drugs, medicaments and biological substances